=== PATIENT | female | born 1965 | race Caucasian/White ===

== ENCOUNTER → 2016-10-30 | Outpatient (CLI) | payer BC ==
--- NOTE | 2016-10-31 09:47 | REP ---
MRI RIGHT ANKLE WITHOUT CONTRAST: 10/30/2016. Comparison: Right foot x-ray 10/21/2016. Clinical history: Foot pain. Suspected peroneal tendon tear. Technique: Sagittal and coronal PD, fat suppressed PD and T2 STIR, axial T1 and fat suppressed PD sequences provided. Findings: Marrow signal on the fat suppressed images show the calcaneus, talus, distal tibia and fibula without bone bruise or fracture. The mortise joint was symmetric and preserved. No definite talar dome osteochondral lesion. Subtalar joints grossly intact. Small amount of fluid anterior and posterior to the ankle joint on the sagittal images. Anterior and posterior talofibular and anterior tibiotalar ligaments intact. The calcaneofibular ligament show some strain. The deltoid ligament intact. The Achilles tendon was intact. There is a trace amount of fluid deep to the tendon near its insertion suggesting mild peritendinitis but the Hoffa fat pad was otherwise clear. There is a normal plantar aponeurosis. The PT, FDL, FHL, AT, EDL and EHL tendons are all intact. However, there is abnormal signal and fluid around the peroneal tendons with extensive tenosynovitis. There is thickening abnormal signal of the peroneus brevis tendon below the medial malleolus. Peroneus longus tendon is attenuated below the inferior tip of the lateral malleolus. It had otherwise normal thickness and signal. Impression: 1. There is a tear of the peroneus brevis tendon below the inferior margin of the lateral malleolus with attenuation from behind the malleolus to below it. Abnormal signal throughout that thickened portion of the tendon distally. Appears to be some attenuation of the peroneus longus tendon without signal abnormality. Extensive edema and fluid around the tendons has a coarse posterior and inferior to the lateral malleolus. 2. Small joint effusion anterior and posterior to the ankle with the ankle ligaments grossly intact except for some strain of the calcaneofibular ligament. 3. The other anterior and posterior tendons of the ankle and Achilles were intact. 4. No bone bruise or fracture. Signed by Byron Adame MD 10/31/2016 09:35 P
== END ==
LOC: M RAD 15:43
PROVIDERS: ATTEND Podiatrist
DX: S86.311A Strain of muscle(s) and tendon(s) of peroneal muscle group at lower leg level, right leg, initial encounter (principal); S96.811A Strain of other specified muscles and tendons at ankle and foot level, right foot, initial encounter; X58.XXXA Exposure to other specified factors, initial encounter; Y93.9 Activity, unspecified; Y92.9 Unspecified place or not applicable; Y99.8 Other external cause status

== ENCOUNTER → 2017-06-17 | Outpatient (CLI) | payer BC ==
[2017-06-17 16:22] LABS: BASO % 0.6 % (0.0-1.0); EOS # 0.1 10^3/uL (0.0-0.50); EOS % 1.9 % (0.0-3.0); IMMATURE GRANULOCYTE % 0.3 % (0-0); LYMPH # 2.2 10^3/uL (1.5-4.5); LYMPH % 35.6 % (24.0-44.0); MEAN CORPUSCULAR HEMOGLOBIN 29.4 pg (27.0-33.0); MEAN CORPUSCULAR HGB CONC 33.3 g/dl (32.0-36.5); MEAN CORPUSCULAR VOLUME 88.2 fl (80.0-96.0); MONO # 0.6 10^3/uL (0.0-0.8); MONO % 9.5 % (0.0-5.0); NEUTROPHILS # 3.3 10^3/uL (1.8-7.7); NEUTROPHILS % 52.1 % (36.0-66.0); PLATELET COUNT, AUTOMATED 337 10^3/uL (150-450); RED CELL DISTRIBUTION WIDTH 12.3 % (11.5-14.5); WHITE BLOOD COUNT 6.2 10^3/uL (4.0-10.0)
[2017-06-17 16:48] LABS: ANION GAP 4 MEQ/L (8-16); BLOOD UREA NITROGEN 11 MG/DL (7-18); CALCIUM LEVEL 9.2 MG/DL (8.5-10.1); CARBON DIOXIDE LEVEL 33 MEQ/L (21-32); CHLORIDE LEVEL 105 MEQ/L (98-107); CREATININE FOR GFR 0.67 MG/DL (0.55-1.02); GLOMERULAR FILTRATION RATE > 60.0 (>51); GLUCOSE, FASTING 87 MG/DL (70-105); POTASSIUM SERUM 3.9 MEQ/L (3.5-5.1); SODIUM LEVEL 142 MEQ/L (136-145)
--- NOTE | 2017-06-17 17:31 | ECGEPIP ---
Stationary ECG Study [facility] Test Date: 2017-06-17 Pat Name: RANDELL SWAN Department: Room: - Gender: F [employer]: ROBIN : 1965 Requested By: Escobar Sorto Order Number: [id number] Reading MD: Nikky Munoz Measurements Intervals Carpio Rate: 41 P: 43 MS: 172 QRS: 61 QRSD: 108 T: 41 QT: 427 QTc: 356 Interpretive Statements SINUS BRADYCARDIA PROB early repolar changes no prior Electronically Signed On 06-17-2017 17:31:25 EDT by Nikky Munoz
== END ==
LOC: M LAB 15:51
PROVIDERS: ATTEND Podiatrist
DX: Z01.818 Encounter for other preprocedural examination (principal)

== ENCOUNTER → 2017-10-15 | Day surgery (SDC) | payer BC ==
[~2017-10-15] MED LIST: LIDOCAINE 2% INJ 100 MG/5 ML SDV (FOR ANES.) As Ordered; PROPOFOL 200 MG/20 ML VIAL As Ordered
[2017-10-15] MEDS: NS 1,000 ML IV (07:13)
== END | disposition home or self-care (01) ==
LOC: M OPP 06:44
DX: Z12.11 Encounter for screening for malignant neoplasm of colon (principal); K64.0 First degree hemorrhoids; Z78.0 Asymptomatic menopausal state; Z91.030 Bee allergy status; Z88.8 Allergy status to other drugs, medicaments and biological substances
CPT/HCPCS: G0121